=== PATIENT | male | born 1970 | race Caucasian/White ===

== ENCOUNTER 2016-09-28 10:43 | Day surgery (SDC) | payer BC ==
[~2016-09-28] VITALS: Ht 180.3 cm; Wt 108.9 kg
[2016-09-28 11:14] VITALS: BP 127/75
[2016-09-28] MEDS ORDERED: COLACE100 MG PO (15:47)
[2016-09-28] MEDS ORDERED: PERCOCET 5/31 TABLET PO (15:47)
[2016-09-28 17:30] VITALS: BP 153/95
[2016-09-28 18:34] VITALS: BP 146/98
== END 2016-09-28 18:35 | disposition home or self-care (01) ==
LOC: SDC 10:43
PROC: 0WQF4ZZ Repair Abdominal Wall, Percutaneous Endoscopic Approach (ICD-10-PCS; principal; 2016-09-28)
PROC: 0WUF4JZ Supplement Abdominal Wall with Synthetic Substitute, Percutaneous Endoscopic Approach (ICD-10-PCS; principal; 2016-09-28)
DX: K42.0 Umbilical hernia with obstruction, without gangrene (principal); R00.0 Tachycardia, unspecified; E66.9 Obesity, unspecified; Z68.33 Body mass index [BMI] 33.0-33.9, adult; Z82.49 Family history of ischemic heart disease and other diseases of the circulatory system; Z80.52 Family history of malignant neoplasm of bladder; Z82.3 Family history of stroke
CPT/HCPCS: C1781; J0330; J0690; J1100; J1170; J1885; J2405; J3010